=== PATIENT | male | born 1980 | race Caucasian/White ===

== ENCOUNTER → 2023-06-07 14:20 | Outpatient (BNVA) | payer OTHER, SELFPAY | PROVIDERS: PCP Family Medicine; Referring Provider Nurse Practitioner Family; Visit Provider Orthopaedic Surgery | DX: M54.9 Dorsalgia, unspecified (principal) | CPT/HCPCS: 72110 ==

== ENCOUNTER 2023-06-21 12:29 | Outpatient (RCR) | payer OTHER, SELFPAY | END 2023-07-01 23:59 | disposition home or self-care (01) | LOC: SPT 12:29 | PROVIDERS: Visit Provider Orthopaedic Surgery | DX: M54.9 Dorsalgia, unspecified (principal); G89.29 Other chronic pain | CPT/HCPCS: 97161 ==

== ENCOUNTER 2023-07-04 13:37 | Outpatient (RCR) | payer OTHER, SELFPAY | END 2023-07-05 23:59 | disposition home or self-care (01) | LOC: SPT 13:37 | PROVIDERS: PCP Family Medicine; Visit Provider Orthopaedic Surgery | DX: M54.9 Dorsalgia, unspecified (principal); G89.29 Other chronic pain | CPT/HCPCS: 97110 ==